=== PATIENT | female | born 1985 | race Caucasian/White ===

== ENCOUNTER 2022-04-05 12:46 | Outpatient (CLI) | payer OTHER, SELFPAY ==
--- NOTE | 2022-04-05 13:00 | CRLHL7_ITS ---
For Patients: As a result of the Cures Act, medical imaging exams and procedure reports are released immediately into your electronic medical record. You may view this report before your referring provider. If you have questions, please contact your health care provider. INDICATION: f/u previous YOSI COMPARISON: 03/07/2022 TECHNIQUE: Real-time quiñonez-scale imaging of the pelvis was performed. FINDINGS: Sonographic imaging demonstrates a single living intrauterine gestation. The embryo demonstrates a regular cardiac rate measuring 148 beats per minute. The embryo`s crown-rump length measurement of 7.3 cm corresponds to a gestational age of 13 weeks 3 days with a sonographic due date of 10/08/2022. The yolk sac is not visualized. There are no gross abnormalities noted within the embryo at this early state of development. The gestational sac has a normal appearance. Inferior perigestational hemorrhage is present measuring 13 x 10 millimeters. Fundal perigestational hemorrhage is also noted measuring 20 x 5 x 7 millimeters. The amount of fluid within the sac appears appropriate for gestational age. IMPRESSION: Single living intrauterine with sonographic gestational age 13 weeks 3 days and sonographic due date 10/08/2022. Slightly decreased size of the 2 subchorionic hemorrhages. Dictated by Jenaro Caicedo MD @ 04/05/2022 2:14:16 PM (Electronically Signed)
== END 2022-04-05 12:47 | disposition home or self-care (01) ==
LOC: US 12:47
PROVIDERS: PCP Nurse Practitioner Family; Visit Provider Registered Nurse
DX: O46.8X1 Other antepartum hemorrhage, first trimester (principal); Z3A.13 13 weeks gestation of pregnancy
CPT/HCPCS: 76816

== ENCOUNTER 2022-04-17 13:49 | Outpatient (CLI) | payer OTHER, SELFPAY | END 2022-04-17 13:50 | disposition home or self-care (01) | LOC: NFLDREF 13:50 | PROVIDERS: PCP Nurse Practitioner Family; Visit Provider Advanced Practice Midwife | DX: O09.522 Supervision of elderly multigravida, second trimester (principal); O26.892 Other specified pregnancy related conditions, second trimester; N39.0 Urinary tract infection, site not specified; Z3A.14 14 weeks gestation of pregnancy | CPT/HCPCS: 87086; 87186 ==

== ENCOUNTER 2022-05-03 13:49 | Outpatient (CLI) | payer OTHER, SELFPAY | END 2022-05-03 13:50 | disposition home or self-care (01) | LOC: NFLDREF 15:02 | PROVIDERS: PCP Nurse Practitioner Family; Visit Provider Advanced Practice Midwife | DX: Z34.92 Encounter for supervision of normal pregnancy, unspecified, second trimester (principal); Z3A.17 17 weeks gestation of pregnancy | CPT/HCPCS: 87086 ==

== ENCOUNTER 2022-06-06 12:30 | Outpatient (CLI) | payer OTHER, SELFPAY | END 2022-06-06 12:31 | disposition home or self-care (01) | LOC: US 12:31 | PROVIDERS: PCP Nurse Practitioner Family; Visit Provider Pediatrics Neonatal-Perinatal Medicine | DX: O09.522 Supervision of elderly multigravida, second trimester (principal); Z3A.21 21 weeks gestation of pregnancy | CPT/HCPCS: 76811 ==

== ENCOUNTER 2022-07-18 15:12 | Outpatient (CLI) | payer OTHER, SELFPAY ==
[2022-07-20 13:53] LABS: Rapid Plasma Reagin (RPR) Non Reactive (Non Reactive)
== END 2022-07-18 15:13 | disposition home or self-care (01) ==
PROVIDERS: PCP Nurse Practitioner Family; Visit Provider Obstetrics & Gynecology
DX: O09.522 Supervision of elderly multigravida, second trimester (principal); Z3A.27 27 weeks gestation of pregnancy
CPT/HCPCS: 86592

== ENCOUNTER 2022-07-25 15:22 | Outpatient (CLI) | payer OTHER, SELFPAY ==
[2022-07-25 08:33] LABS: Glucose Fasting Check 73 mg/dl (60-115)
[2022-07-25 11:58] LABS: Glucose 1 Hour Gest 135 mg/dl (70-180)
[2022-07-25 11:58] LABS: Glucose GTT-Gestational 3 Hr 79 mg/dl (70-140)
== END 2022-07-25 15:23 | disposition home or self-care (01) ==
PROVIDERS: PCP Nurse Practitioner Family; Visit Provider Obstetrics & Gynecology
DX: R73.09 Other abnormal glucose (principal)
CPT/HCPCS: 82951; 82952

== ENCOUNTER 2022-09-13 10:10 | Outpatient (CLI) | payer OTHER, SELFPAY ==
--- NOTE | 2022-09-13 10:15 | CRLHL7_ITS ---
For Patients: As a result of the Century Cures Act, medical imaging exams and procedure reports are released immediately into your electronic medical record. You may view this report before your referring provider. If you have questions, please contact your health care provider. INDICATION: Third trimester scan, evaluate growth. MEASURING LARGER THAN DATES COMPARISON: 04/05/2022 TECHNIQUE: Real time quiñonez scale imaging of the fetus was performed. FINDINGS: Sonographic imaging demonstrates a single living intrauterine gestation. Fetus demonstrates a regular cardiac rate of 132 beats per minute. Fetus has a vertex position. The placenta lies fundal posterior. Amniotic fluid volume appears normal and there is a single deepest vertical pocket: 6.7 cm. The estimated weight is 3339gm which lies at the 93rd %. BPD 84th percentile. HC 72nd percentile. AC greater than 97th percentile. FL 15th percentile. The HC/AC ratio measures 0.94 range (0.91-1.05). IMPRESSION: Sonographic gestational age 37 weeks 2 days and sonographic due date 10/02/2022. Sonographic age is 9 days ahead of the clinical age. Estimated weight 93rd percentile. Abdominal circumference greater than 97th percentile. Dictated by Jenaro Caicedo MD @ 09/13/2022 11:25:50 AM (Electronically Signed)
== END 2022-09-13 10:11 | disposition home or self-care (01) ==
PROVIDERS: PCP Nurse Practitioner Family; Visit Provider Obstetrics & Gynecology
DX: O36.63X0 Maternal care for excessive fetal growth, third trimester, not applicable or unspecified (principal); Z3A.37 37 weeks gestation of pregnancy
CPT/HCPCS: 76816

== ENCOUNTER 2022-09-13 11:32 | Outpatient (CLI) | payer OTHER, SELFPAY ==
[2022-09-14 13:56] LABS: Strep B DNA Probe POSITIVE (Negative); Strep B Pen/Amox Allergy Yes
== END 2022-09-13 11:33 | disposition home or self-care (01) ==
LOC: NFLDREF 11:51
PROVIDERS: PCP Nurse Practitioner Family; Visit Provider Obstetrics & Gynecology
DX: O36.63X0 Maternal care for excessive fetal growth, third trimester, not applicable or unspecified (principal); Z3A.37 37 weeks gestation of pregnancy
CPT/HCPCS: 87081; 87186; 87653

== ENCOUNTER 2022-09-27 13:30 | Outpatient (RCR) | payer OTHER, SELFPAY ==
--- NOTE | 2022-09-24 06:58 | URNOTE ---
Request received for Ferric Carboxymaltose ([id number]). Prior Authorization is not required per [facility] Ref#[id number].
[2022-09-27 13:30] VITALS: BP 105/68; PULSE 92; RESP 16; TEMP 36.6; O2SAT 99
[2022-09-27] MEDS: FERRIC CARBOXYMALTOSE 750 MG in 0.9 % SODIUM CHLORIDE 250 ml 250 ML 1060 MG IVPB (14:07)
[2022-09-27 14:26] VITALS: BP 100/64; PULSE 82; RESP 16; TEMP 36.8; O2SAT 95
[2022-09-27 14:55] VITALS: BP 110/67; PULSE 78; RESP 16; TEMP 36.2; O2SAT 98
== END 2023-03-26 23:59 | disposition home or self-care (01) ==
LOC: CCIC 13:30
PROVIDERS: PCP Nurse Practitioner Family; Referring Provider Nurse Practitioner Family; Visit Provider Obstetrics & Gynecology
DX: O99.019 Anemia complicating pregnancy, unspecified trimester (principal)
CPT/HCPCS: 96374; J1439; J7050

== ENCOUNTER 2022-09-27 16:15 | Inpatient (IN) | payer OTHER, SELFPAY ==
[2022-09-27] VITALS (39 sets, daily range): BP systolic 96–109; BP diastolic 54–69; PULSE 78–239; TEMP 36.8–36.9; O2SAT 81–100; BMI 27.8
[2022-09-27] MEDS: CALCIUM CARBONATE 500 MG CHEW PO (16:51)
[2022-09-27 16:59] LABS: SARS PCR* Negative SARS-CoV-2 (Negative)
[2022-09-27] MEDS: LACTATED RINGERS 1000 ML 1,000 ML 125 ML IV (17:00)
[2022-09-27] MEDS: CLINDAMYCIN 900 MG/50 ML-D5W IVPB (18:48)
--- NOTE | 2022-09-27 20:56 | P.LDBA_ITS ---
Subjective History of Present Illness Date Seen: 09/27/22 Narrative: Patient is being admitted to Labor and Delivery for IOL. She is a 37 year old at 38 0/7 weeks gestation. Her full history and physical was dictated by Dr. LAM on 09/20/22. Please see this for details. Patient presented today in the afternoon to clinic for routine care visit, she had just completed her first dose of IV iron infusion. Upon Doppler evaluation heart rate was found in the 105-110bpm. Recommendation was given to perform NST in the clinic and heart rate was found at the 100s for the first at least 5 minutes, recommendation was made to quickly transfer patient to labor and delivery for further evaluation. Pulse oximeter was placed on mom and bedside ultrasound confirmed heart rate persistently in the 100s. Patient was repositioned, IV line was quickly obtained and we did get some accelerations, OR team was called in due to concerns of persistent bradycardia. Within 10 minutes baseline was seen to improve closer to the 110s, accelerations present, moderate variability present. Due to these findings, term gestation recommendation was made for admission continued monitoring and IOL. Patient agreed with plan. Specific Issues/Plans Boyfriend: Everardo (this will be his 1st baby). Son: Rashaad. Baby: Boy Blood type:?O positive 1. Advanced maternal age * Ordered [id number] on 04/05/22: no increased risk for aneuploidy. Boy. * Level 2 ultrasound 06/06/2022: No anatomic abnormalities. 2. Discontinued Adderall with positive urine test 3. History of situational anxiety.? Took Xanax on rare occasions.? Has not taken it in over a year does not plan to take it during .? 4. 2018: Pap at [place] was LGSIL (no colposcopy). * Pap with HPV on 04/05/2022 at 13 weeks 0 days gestation. * 04/05/22: ASCUS cannot R/O High grade lesion. HPV 16 an 18 neg. 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 * Colposcopy:? Scheduled 06/01/2022: minimal acetowhite change: no biopsy. * Pap w/ HPV and colposcopy at 6 weeks . 5. UTI E. Coli Treated 04/17/2021 Cephalexin 500 mg BID x 7 days JESUS: UC 05/03/2022: No growth. 6. Anemia.? Hemoglobin 9.7 07/18/2022 * Iron supplement prescription and stool softener prescriptions sent to pharmacy(07/18/22). * Patient did not take the supplements. Takes gummy vitamins (no iron) * 09/13/22 36 wks: hgb 9.3 (now taking supplements) * Iron infusion 09/27/22 7. At 1st visit was smoking 5-10 cigarettes/day.? Quit smoking 02/2022 ? Covid: completed. ? Due for booster Flu: Declines TDAP: done OB - H&P: Exam Physical Exam: Vital signs: Temp Pulse BP Pulse Ox 98.4 F 83 109/69 97 09/27/22 19:27 09/27/22 19:27 09/27/22 19:27 09/27/22 19:05 Narrative: Cervix had been checked in clinic and was found 3cm/60%/vertex/-1 NST: 110bm/positive accelerations/negative decelerations/moderate variability/irregular uterine contractions OB - Problem Based A/P Additional Plan (1) : Status: Acute (2) Anemia affecting : Status: Acute Plan IOL: 1. GBS positive status. Penicillin allergy, sensitive to clindamycin will utilize this medication, will plan to offer AROM after at least 3-4 hours of antibiotic therapy. 2. Continuos monitoring. 3. Pain management as requested by patient. 4. Offered to start IV Oxytocin as well at some point prior to AROM. 5. Type and screen, low threshold for blood transfusions in the event of hemorrhage, plan to give TXA prior to expected delivery.
[2022-09-27 21:25] LABS: Basophils Percent Auto 0.1 % (0.0-3.0); Eosinophils Percent Auto 0.6 % (0.0-7.0); Hemoglobin* 10.5 gm/dL (12.0-16.0); Immature Granulocytes Pct Auto 1.1 %; Lymphocytes Percent Auto 18.6 % (20-44); Mean Corpuscular HGB Conc 33 gm/dL (32-36); Mean Corpuscular Hemoglobin 30 pg (26-34); Mean Corpuscular Volume 91 fL (80-100); Monocytes Percent Auto 4.9 % (0.0-11.0); Neutrophils Percent Auto 74.7 % (42.0-72.0); Platelet Count* 236 K/uL (140-440); RDW Coefficient of Variation % 14.5 % (11.5-15.5)
[2022-09-27 21:30] LABS: Slide Review Reflex No
--- NOTE | 2022-09-27 23:47 | PM.OBPNL ---
Subjective Time Seen by Provider: 23:47 Date Seen: 09/27/22 Narrative: Patient doing well is starting to feel contractions as more painful but still able to tolerate. NST baseline has remained in the 115-120s, category 1. Clindamycin was given and it has been more than 4 hours since first dose. Patient would like to be checked to see if we could rupture membranes. Objective Exam: Cervix:4cm/60%/vx/-2 AROM performed and after this; Cervix:5cm/60%/VX/-2 NST: 115bpm/positive accelerations/negative decelerations/moderate variability/ regular uterine contractions Vital Signs: Last Vital Signs Temp 98.4 F 09/27/22 19:27 Pulse 83 09/27/22 19:27 BP 109/69 09/27/22 19:27 Pulse Ox 97 09/27/22 19:05 Contractions Monitor mode: External Contraction pattern: Regular Contraction intensity: Moderate Assessment Assessment: early labor Station: -2 Amniotic Membrane Status: AROM Status: Category l Heart Rate Baseline: 115 Penitentiary Variability: Moderate (6-25) Monitor Accelerations: Present Monitor Decelerations: None Tracing Comments: Category 1 Plan Plan: Continue current management, recommend starting IV oxytocin at this moment to help with station. She would like to continue ambulation at this moment and try different options for pain management before proceeding to epidural. Will plan to recheck in 4 hours, sooner if there are any concerns.
[2022-09-28] VITALS (41 sets, daily range): BP systolic 87–117; BP diastolic 50–81; PULSE 78–131; RESP 16; TEMP 36.3–36.9; O2SAT 96–100
[2022-09-28] MEDS: OXYTOCIN 30 unit/500 ML in NS 30 UNIT/500 ML BAG IVPB (01:28)
[2022-09-28] MEDS: LACTATED RINGERS 1000 ML 1,000 ML 125 ML IV (02:32)
[2022-09-28] MEDS: CLINDAMYCIN 900 MG/50 ML-D5W IVPB (02:32)
[2022-09-28] MEDS: LIDOCAINE 2% (PF) 5 ML VIAL EPIDURAL (04:30)
[2022-09-28] MEDS: ROPIVACAINE 0.2 % PF 10 ML INJ 20 MG EPIDURAL (04:30)
[2022-09-28] MEDS: ROPIVACAINE 0.2% 100 ml 100 ML 12 MG EPIDURAL (04:31)
--- NOTE | 2022-09-28 04:39 | PM.ANBPRC ---
[facility] Medical History (Updated 08/01/22 @ 17:21 by Lanette Leung MD) AMA (advanced maternal age) multigravida 35+ Delivery normal Insomnia LGSIL on Pap smear of cervix (~2017) Pap smear of cervix with ASCUS, cannot exclude HGSIL (04/05/22) Surgical History (Updated 06/01/22 @ 20:02 by Carmen Ingram MD) Status post colposcopy (06/01/22) Social History Smoking Status: Former smoker Meds Home Medications and Allergies Home Medications Medication Instructions Recorded Confirmed Type docosahexaenoic acid 200 mg 200 mg PO DAILY 04/05/22 09/27/22 History capsule ( DHA) ferrous sulfate 325 mg (65 mg 325 mg PO QDAY 09/20/22 09/27/22 History iron) tablet (Feosol) Allergies Allergy/AdvReac Type Severity Reaction Status Date / Time Penicillins Allergy Unknown Hives Verified 09/27/22 15:06 Results Labs Labs: Laboratory Results - last 24 hr 09/27/22 09/27/22 09/27/22 16:00 16:08 16:08 WBC 14.80 H RBC 3.50 L Hgb 10.5 L Hct 32.0 L MCV 91 MCH 30 MCHC 33 RDW Coeff of [place] 14.5 Plt Count 236 Neut % (Auto) 74.7 H Lymph % (Auto) 18.6 L [place] % (Auto) 4.9 Eos % (Auto) 0.6 Baso % (Auto) 0.1 Neut # (Auto) 11.10 H Lymph # (Auto) 2.80 [place] # (Auto) 0.70 Eos # (Auto) 0.10 Baso # (Auto) 0.00 SARS-CoV-2 (PCR) Negative SARS-CoV-2 Blood Type O Positive Antibody Screen NEGATIVE Vital Signs Vital Signs: Last Vital Signs Temp 97.4 F L 09/28/22 03:10 Pulse 97 09/28/22 04:39 BP 109/65 09/28/22 04:39 Pulse Ox 97 09/28/22 04:38 Weight: 66.996 kg Height: 154.94 cm Anesthesia Procedures Epidural Insertion Patient Location: OB Start Time: 03:36 Stop Time: 04:39 Start Date: 09/28/22 Stop Date: 09/28/22 Reason for Block: procedure for pain Patient Position: sitting Performed By: Alex Louie Preanesthetic Checklist: IV checked, risks and benefits discussed, surgical consent, monitors and equipment checked, pre-op evaluation, timeout performed and anesthesia consent Prep: chlorhexidine gluconate Monitoring: blood pressure monitoring, continuous pulse oximetry and heart rate Approach: midline Vertebral Space: lumbar (1-5) Epidural Technique: STEVEN air Needle Type: Tuohy needle Injection Technique: continuous catheter Needle gauge: 17 Needle Length (cm): 10 cm Needle Insertion Depth (cm): 7 Catheter Gauge: 19 Catheter Type: multi-orifice Catheter at skin depth (cm): 13 Test Dose Result: negative and lidocaine 1.5% with epinephrine 1 to 200,000
[2022-09-28] MEDS: LACTATED RINGERS 1000 ML 1,000 ML 999 ML IV (04:41)
[2022-09-28] MEDS: TRANEXAMIC ACID 100 MG/ML INJ 1000 MG IV (06:27)
[2022-09-28] MEDS: LIDOCAINE 1% MDV 20 ML INJECTION (07:47)
--- NOTE | 2022-09-28 07:56 | PM.OBPRCVD ---
Procedure Delivery date: 09/28/22 Procedure Done: Global Events: Other (Sent from clinic for induction of labor due to heart rate baseline 110s) Intrapartal Events: None Induction method: per pitocin protocol Delivery augmentation: rupture of membranes Delivery monitor: external FHT and external uterine Route of delivery: Laceration description: Periurethral - 1st Degree (Left) Delivery repair: Chromic (2 interrupted sutures of 3-0 chromic) Estimated blood loss (mL): 150 Anesthesia type: Epidural Disposition: floor Complications: None. Narrative: The patient is a 37 year-old admitted on 09/27/2022 at 38 Weeks, 0 Days gestation for induction of labor secondary to low heart rate baseline noted in the clinic.? Cervical exam on admission was 3 cm/60 % effaced/-1 station with membranes intact in vertex presentation.? heart rate demonstrated baseline 115 bpm with good variability, + accelerations, - decelerations; a category 1 tracing.? Labor onset:? 2328 on 09/27/2022 AROM occurred at 2329 with clear fluid. ? Labor Analgesia:? Epidural ? Pitocin:? Yes ? Complete:? 0623 on 09/28/2022 ? Pushing:? 0628 ? At 0735 a viable male delivered in vertex OA presentation over intact perineum via spontaneous vaginal delivery.? Infant was placed on maternal abdomen.? Cord was clamped and cut after a 30-60 second delay.? Nose and mouth were bulb suctioned.? weight pending.? 9 at 1 minute and 9 at 5 minutes.? Shoulder dystocia: No.? Nuchal cord: Yes, x1. ? Placenta delivered spontaneously and complete at 0740 with a 3 vessel cord. ? Mother and infant were stable after delivery. ? Lacerations:? 1st degree left periurethral, repaired with 2 interrupted sutures of 3-0 chromic. ? Blood loss: 150 mL. Blood loss measurement type: QBL ? Sponge and needles counts are correct. Gender: Male presentation: vertex Placental Delivery Description: Spontaneous Cord Description: 3 Vessels and Nuchal Cord (x1)
[2022-09-28] MEDS: IBUPROFEN 600 MG TABLET PO ×3 (09:54→22:40)
[2022-09-28] MEDS: DOCUSATE SODIUM 100 MG CAPSULE PO (09:54)
[2022-09-28] MEDS: ACETAMINOPHEN 500 MG TABLET 1000 MG PO (12:29)
[2022-09-29 01:00] VITALS: BP 97/64; PULSE 75; RESP 16; O2SAT 97
[2022-09-29 04:00] VITALS: BP 109/68; PULSE 67; RESP 16; TEMP 36.6; O2SAT 97
[2022-09-29] MEDS: IBUPROFEN 600 MG TABLET PO ×2 (05:05→12:07)
[2022-09-29 09:15] VITALS: BP 102/66; PULSE 83; RESP 16; TEMP 36.6; O2SAT 97
--- NOTE | 2022-09-29 10:19 | PM.OBDSVD1 ---
DS: Providers Provider Date Seen: 09/29/22 Date of admission: 09/27/22 16:15 Primary care physician: Laura Hansen APRN, [facility] [employer] Admitting Clinician: Sherry Deal MD Attending Physician on discharge: Sherry Deal MD Date of Discharge: 09/29/22 DS: Diagnosis Discharge Diagnosis (1) Spontaneous vaginal delivery: Status: Acute Exam Narrative: Exam Narrative: VITAL SIGNS: As noted above. GENERAL APPEARANCE: Alert, cooperative female in no acute distress. MOOD & AFFECT: Normal. ABDOMEN: Soft, non-distended and nontender. Well contracted uterus. : Normal lochia. EXTREMITIES: Nonedematous. Well perfused. Nontender. Const: Vital Signs, click to edit/add: Vital Signs - 24 hr 09/28/22 12:22 09/28/22 16:00 09/28/22 19:15 Temperature 98.5 F 98.1 F 97.8 F Pulse Rate [Pulse Oximeter] 78 82 89 Respiratory Rate 16 16 16 Blood Pressure [Ri ght Arm] 93/55 L 95/58 L 108/69 Pulse Oximetry 97 96 98 Oxygen Delivery Me thod Room Air Room Air Room Air 09/29/22 01:00 09/29/22 04:00 09/29/22 09:15 Temperature 97.9 F 97.9 F Pulse Rate [Pulse Oximeter] 75 67 83 Respiratory Rate 16 16 16 Blood Pressure [Ri ght Arm] 97/64 109/68 102/66 Pulse Oximetry 97 97 97 Oxygen Delivery Me thod Room Air Room Air Room Air OB - DS: Summary Hospital Course Hospital Course: The patient is a 37 year old G 2 P 20 0 2 at 38 2/7 weeks gestation that was admitted to the Center on 09/27/22 for induction of labor after concerns for nonreassuring status. She had an uncomplicated vaginal delivery. She delivered a viable male . She is breast feeding. the patient has done well. Hemoglobin 10.5, patient denies any headaches, visual changes, heart palpitations or lightheadedness or dizziness with ambulation. Peripartum Data delivery method: Vaginal Laceration description: Periurethral - 1st Degree Episiotomy description: None complications: none Gender: Male Status at Discharge Functional status at discharge: independent ambulation Overall status at discharge: patient is progressing back to baseline Time Spent with Patient Time attestation: Total time spent providing and/or coordinating discharge services: Time spent: Less than 30 minutes Discharge Plan Discharge Disposition: Home, Self-Care Date of Admission: 09/27/22 16:15 Attending Provider on Discharge: Sherry Deal Primary Care Provider: Laura Hansen Condition: Stable Anticipated Discharge Date/Time: 09/29/22 10:21 Discharge Medications: New docusate sodium 100 mg Capsule 100 mg PO DAILY Qty: 30 0RF ibuprofen 600 mg Tablet 600 mg PO Q6H PRNQty: 30 0RF Continued DHA 200 mg capsule 200 mg PO DAILY Discontinued ferrous sulfate [Feosol] 325 mg (65 mg iron) tablet 325 mg PO QDAY Discharge Orders: Discharge Order (Routine); Ordered 09/29/22 Ordered By: Sherry Deal Patient Education: OB Vaginal/Breast Feeding Activity Level: Activity as Tolerated Activity Detail: Nothing vaginally for 6 weeks Discharge Diet: Regular Follow Up Appointments: Laura Hansen APRN, [facility] [employer] [Primary Care Provider] - Sherry Deal MD [Staff Physician] - Forms: MyHealth Info Instructions Discharge Comments: Follow-up in clinic in 2 weeks to follow-up on mood and , follow-up in clinic at 6 weeks for a regular visit.
[2022-09-29 10:34] LABS: Hemoglobin* 9.3 gm/dL (12.0-16.0)
[2022-09-29] MEDS: DOCUSATE SODIUM 100 MG CAPSULE PO (12:08)
== END 2022-09-29 14:51 | disposition home or self-care (01) | DRG 807 ==
LOC: OB OUT 16:16 → OB 16:16
PROVIDERS: Obstetrics & Gynecology; Admitting Provider Obstetrics & Gynecology; PCP Nurse Practitioner Family; Visit Provider Obstetrics & Gynecology
DX: O76 Abnormality in fetal heart rate and rhythm complicating labor and delivery (principal); Z37.0 Single live birth; O71.82 Other specified trauma to perineum and vulva; O99.02 Anemia complicating childbirth; D64.9 Anemia, unspecified; O99.824 Streptococcus B carrier state complicating childbirth; Z3A.38 38 weeks gestation of pregnancy
CPT/HCPCS: 01967; 36415; 85018; 85025; 86850; 86900; 86901; 87635; A9270; J2795; J7120; S0077

== ENCOUNTER 2022-10-05 12:53 | Outpatient (CLI) | payer OTHER, SELFPAY ==
--- NOTE | 2022-10-05 16:50 | P.LACCB_ITS ---
Consult Note - Mom Date of Visit Date of visit: 10/05/22 emergency management consultant: Leann Ritter Visit Code: Visit Patient's Information Phone number: [phone] : 2 Para: 2 Allergies Penicillins Allergy (Unknown, Verified 10/16/22 12:32) Hives Mother's Medical History: Medical History (Updated 09/29/22 @ 10:19 by Sherry Deal MD) AMA (advanced maternal age) multigravida 35+ Delivery Information Delivery type: Vaginal Weeks Gestation: 38.1 Gestational Age: LGA Weight: 3.78 kg Discharge Weight: 3.632 kg Baby's Information Medications: pnv, colace, ibuprofen Baby's Age at Visit: 7 days Baby's Provider or Clinic: Dr. Caceres Jaundice: Yes (mild, facial) Reason for Consult Reason for Consult: difficulty latching Past Experience Past Experience: Yes (nursed her first child) Current Frequency of Day Feedings: every 2 - 3.5 hours around the clock Both Breasts: Yes (mom offers) Suck: fairly strong but he's sleepy Latch: wide Length of Time: will someimes nurse over one hour Pumping Pumping: Yes (has been pumping the past few days d/t difficulty latching) Quantity Pumped: about 2 oz total each time Supplementing EMB Supplement: Yes (POC have given about one bottle EBM daily) Formula Supplement: No Baby Elimination Number of Wet Diapers a Day: at least every feeding Number of BM a Day: about every other feeding; yellow and seedy Breast/Nipple Condition Breast Information: WNL Engorgement: No Maternal Nipple Condition - Left: Common Nipple Maternal Nipple Condition - Right: Common Nipple Sore Nipples: Yes Onsite Pre-Feed weight: 3.408 kg Post-Feed weight: 3.458 kg Milk Transferred (mL): 50 Pre-Nursing Left Nipple: Within Normal Limits Pre-Nursing Right Nipple: Within Normal Limits Post-Nursing Left Nipple: Within Normal Limits Post-Nursing Right Nipple: Within Normal Limits Assessments/Interventions Assessments/Interventions: Met with mom and this now 7 day old ex- term LGA baby for consult.? Mom reports she's had difficulty latching him almost since and that he will latch but it can take up to 20 minutes.? Once he does she states he nurses well, she hears swallowing and her breasts feel softer when he's finished.? She also reports even with the signs of positive milk transfer he was still loosing weight at his NB visit on 10/02/22.? Since his NB visit mom has pumped once daily getting about 2 oz total.? POC have supplemented baby no more than once daily with her EBM. Breasts WNL- symmetrical with rounded lower quadrants, intramammary distance is < 1.5 inches.? Nipples are everted and don't flatten or retract on compression.? No damage was visible but mom states they are a little sore.? Reports her milk came in on 09/30. Baby has lost 51 grams since his visit on 10/02 and is 10% below BW (down from 8% on 10/02/22). POC deny a caput or cephalohematoma at delivery and state he has equal ROM when turning his head or moving his extremities.? His palate is WNL and he has a strong suck on a finger.? His upper frenulum is also WNL, his lower frenulum looks like it may be posterior, but the tongue extends past the gum line and has good lateral movement. Mom brought baby to the right breast in the cradle hold and he latched almost immediately.? He had a deep, asymmetrical latch and mom was comfortable.? He nursed for about 20 minutes, needing some stimulation to stay awake.? Mom then switched him to her right side and again he latched almost immediately; on this side mom supported her breast in the C hold which seemed to help him.? We discussed what might be different in the office from how she's nursing at home is: he's undressed, she's sitting up with good posture, and she's supporting her breast.? Baby nursed about 10 minutes on the right and when he was weighed had transferred 50 ml.? Plan: 1. Continue to nurse baby every 2 - 3 hours, offering both sides at each feeding and not letting him go past 3 hours for now.? Suggested she nurse him at home like she did here as the better posture and breast support probably helped him. 2. Suggested supplementing with 1 - 2 oz if a nursing session does not go well. 3. Suggested she pump to comfort after nursing prn, and pump to empty if he doesn't nurse well.? What she pumps can be used for supplementation. 4. Will f/u for a weight check in on 10/08 and for a circumcision on 10/10. Meds Home Medications and Allergies Home Medications Medication Instructions Recorded Confirmed Type docosahexaenoic acid 200 mg 200 mg PO DAILY 04/05/22 10/16/22 History capsule ( DHA) Allergies Allergy/AdvReac Type Severity Reaction Status Date / Time Penicillins Allergy Unknown Hives Verified 10/16/22 12:32
== END 2022-10-05 12:54 | disposition home or self-care (01) ==
PROVIDERS: PCP Nurse Practitioner Family; Visit Provider Obstetrics & Gynecology
DX: Z39.1 Encounter for care and examination of lactating mother (principal)
CPT/HCPCS: 99211

== ENCOUNTER 2023-10-03 15:02 | Outpatient (CLI) | payer OTHER, SELFPAY ==
--- NOTE | 2023-10-03 15:00 | CRLHL7_ITS ---
For Patients: As a result of the Century Cures Act, medical imaging exams and procedure reports are released immediately into your electronic medical record. You may view this report before your referring provider. If you have questions, please contact your health care provider. INDICATION: Vaginal bleeding in the setting of . According to the ultrasound worksheet, serum beta HCG is 17. TECHNIQUE: Endovaginal pelvic ultrasound with color Doppler. COMPARISON: No recent prior comparison exam. FINDINGS: The uterus measures 5.0 x 2.9 x 8.2 cm. Thin uniform endometrial stripe measuring 2 mm. No intrauterine gestational sac. Right and left ovaries measure 2.0 x 1.4 x 2.3 cm and 1.5 x 1.9 x 2.9 cm, respectively. The ovaries are normal in appearance. No adnexal mass. No pelvic ascites. IMPRESSION: of unknown location. No intrauterine or findings to indicate an ectopic identified. Follow-up ultrasound and beta HCG are recommended. Otherwise unremarkable study. Dictated by Germain Mariano MD @ 10/03/2023 4:39:53 PM (Electronically Signed)
== END 2023-10-03 15:03 | disposition home or self-care (01) ==
LOC: US 15:03
PROVIDERS: PCP Nurse Practitioner Family; Visit Provider Registered Nurse
DX: O46.90 Antepartum hemorrhage, unspecified, unspecified trimester (principal)
CPT/HCPCS: 76817; 82728; 83540; 83550; 84443; 84702; 86850; 86900; 86901; 87491; 87591

== ENCOUNTER 2023-10-05 12:00 | Outpatient (CLI) | payer OTHER, SELFPAY ==
--- OUTSIDE RECORDS SUMMARY | 2023-10-10 09:56 | XMS_ITS | Encounter Summary ---
Author Name Unknown Organization [facility] er Address [address] [place] [address] Care Team Providers Care Stonemason Name Role Phone Marisel Albright APRN, PRE SALES TECHNICAL CONSULTANT Primary Care Provider [phone]- [phone] Reason for Visit * Reason Comments Med Refill Encounter Details Date Type Department Care Team (Late st Contact Info) Description 03/01/2023 1:40 PM CDT Office Visit [place] [address] [facility] [address] [place] [address] Maylin Phipps, CLAIM CLERK [address] [place] [address] Encounter to establish care with new doctor (Primary Dx); Attention deficit disorder (ADD) without hyperactivity Social History Tobacco Use Types Packs/Day Years Used Date Smoking Tobacco: Every Day Cigarettes 0.5 Smokeless Tobacco: Never Alcohol Use Standard Drinks/Week Comments Yes 1 (1 standard drink = 0.6 oz pur e alcohol) AUDIT-C Answer Date Recorded Frequency of Alcohol Consumption Monthly or less 05/14/2019 Average Number of Drinks 1 or 2 019 Frequency of Binge Drinking Not on file 04/30 PHQ-2 Answer Date Recorded PHQ-9 Total Score 2 02/28/2023 Education Answer Date Recorded What is the highest level of school you have completed or the highest degree you have received? High school graduate 05/12/2019 Sex and Gender Information Value Date Recorded Sex Assigned at Not on file Gender Identity Not on file Sexual Orientation Not on file documented as of this encounter Last Filed Vital Signs Vital Sign Reading Time Taken Comments Blood Pressure 106/68 03/01/2023 1:41 PM CDT Pulse 68 03/01/2023 1:41 PM CDT Temperature 36.1 ??C (97 ??F) 03/01/2023 1:41 PM CDT Respiratory Rate 18 03/01/2023 1:41 PM CDT Oxygen Saturation 96% 03/01/2023 1:41 PM CDT Inhaled Oxygen Concentration - - Weight 57.2 kg (126 lb) 03/01/2023 1:41 PM CDT Height 154.9 cm (5' 1) 03/01/2023 1:41 PM CDT Body Mass Index 23.81 03/01/2023 1:41 PM CDT documented in this encounter Patient Instructions * Patient Instructions* Maylin Phipps APRN - 03/01/2023 1:40 PM CDT Recheck ADHD medications in 3 months documented in this encounter Progress Notes * Maylin Phipps APRN - 03/01/2023 1:40 PM CDT Subjective Patient ID: Kiya Pulido is a 37 y.o. female. Chief Complaint Patient presents with Med Refill Patient presents for her annual wellness visit. Patient Had a baby about 5 months ago and would like to get back on ADHD medications. She recently went back to work and has noticed decreased concentration and unable to complete tasks in a timely manner. Med Refill A provider reviewed the following portions of the patient's chart in this encounter and updated as appropriate: Tobacco Allergies Meds Problems Med Hx Surg Hx Fam Hx Review of Systems Psychiatric/Behavioral: Positive for decreased concentration. All other systems reviewed and are negative. Objective Physical Exam Constitutional: Appearance: Normal appearance. She is well-developed and well-groomed. HENT: Head: Normocephalic. Right Ear: Hearing, tympanic membrane, ear canal and external ear normal. Left Ear: Hearing, tympanic membrane, ear canal and external ear normal. Nose: Nose normal. Mouth/Throat: Lips: [place]. Eyes: General: Lids are normal. Comments: Wears glasses when working on the computer for work Cardiovascular: Rate and Rhythm: Normal rate and regular rhythm. Pulses: Normal pulses. Heart sounds: Normal heart sounds. Pulmonary: Effort: Pulmonary effort is normal. Breath sounds: Normal breath sounds and air entry. Musculoskeletal: Cervical back: Full passive range of motion without pain. Neurological: General: No focal deficit present. Mental Status: She is alert. Psychiatric: Attention and Perception: She is inattentive. Mood and Affect: Mood and affect normal. Speech: Speech normal. Behavior: Behavior normal. Behavior is cooperative. Thought Content: Thought content normal. Cognition and Memory: Memory normal. Cognition is impaired. Judgment: Judgment normal. Comments: Increase difficulty with concentration and getting task done on time. Was previously on Adderall but became and went off of it. Kiya recently went back to work January 14 this is when she notice the difficulty with concentration and unable to complete task. Assessment/Plan Problem List Items Addressed This Visit Mental Health Attention deficit disorder (ADD) without hyperactivity Restart Adderall 20 mg 2 times a day Restart Adderall 10 mg daily Follow up in 3 months Relevant Medications amphetamine-dextroamphetamine (ADDERALL) 20 MG tablet amphetamine-dextroamphetamine (ADDERALL) 10 MG tablet Health Encounters Encounter to establish care with new doctor - Primary Pap is due in May 2023: Will continue to have [facility]. Does not want covid booster at this time Baseline blood work done today to establish care Relevant Orders CBC Branch Off w/Diff Comprehensive metabolic panel TSH Lipid panel documented in this encounter Miscellaneous Notes * Assessment & Plan Note - Maylin Phipps APRN - 03/01/2023 2:24 PM CDT Associated Problem(s): Attention deficit disorder (ADD) without hyperactivity Restart Adderall 20 mg 2 times a day Restart Adderall 10 mg daily Follow up in 3 months * Assessment & Plan Note - Maylin Phipps APRN - 03/01/2023 2:22 PM CDT Associated Problem(s): Encounter to establish care with new doctor Pap is due in May 2023: [facility]. Does not want covid booster at this time Baseline blood work done today to establish care * Assessment & Plan Note - Maylin hPipps APRN - 03/01/2023 2:20 PM CDT Associated Problem(s): Annual physical exam (Resolved 03/01/2023) Pap is due in May 2023: Will continue to have Pap's done at the [facility] [place]. Does not want covid booster at this time Baseline blood work done today to establish care documented in this encounter Plan of Treatment Not on file documented as of this encounter Results * Lipid panel (03/01/2023 2:13 PM CDT) Cholesterol 139 0 - 199 mg/dL 03/01/2023 5:[address] [facility] Comment: Recommended by National Cholesterol Education Program (ATP III) -------- Cholesterol Ranges -------- <200 ?Desirable 200-239 ? Borderline high >=240 ? High Triglycerides 99 0 - 149 mg/dL 03/01/2023 5:[address] [facility] Comment: -------- TRIG Ranges -------- <150 ?Normal 150-199 ? Borderline high 200-499 ? High >=500 ? Very high HDL 81 40 - 250 mg/dL 03/01/2023 5:[address] [facility] Comment: -------- HDL Ranges -------- <40 ?Low 40-59 ?Normal >=60 ? Optimal LDL Calculated 38 0 - 99 mg/dL 03/01/2023 5:[address] [facility] Comment: -------- LDL Ranges -------- <100 ? Optimal 100-129 ?Near optimal/above optimal 130-159 ?Borderline high 160-189 ?High >=190 ?Very high Fasting? Unknown 03/01/2023 2:[address] [facility] Blood (Blood, Venous) 03/01/2023 2:13 PM CDT 03/01/2023 4:34 PM CDT Maylin Phipps APRN LAB BLOOD TELMAE KAYLAN [facility] [address] [place] [address] * TSH (03/01/2023 2:13 PM CDT) [facility] TSH, Sensitive 0.87 0.46 - 4.68 mIU/L 03/01/2023 5:[address] [facility] Comment: The results from this or any other diagnostic test should be used and interpreted only in the context of the overall clinical picture. Biotin levels in serum remain elevated for up to 24 hours after oral or intravenous biotin administration and may interfere with this assay to produce unreliable results. Heterophilic antibodies in serum or plasma samples may cause interference in immunoassays. ??Exposure to animal antigens, either in the environment or as part of treatment or imaging procedures, may have circulating anti-animal antibodies present. These antibodies may interfere with the assay reagents to produce unreliable results. ??Results which are inconsistent with clinical observations indicate the need for additional testing. Blood (Blood, Venous) 03/01/2023 2:13 PM CDT 03/01/2023 4:34 PM CDT Maylin Phipps APRN LAB BLOOD MING KIMBROUGH [facility] [address] [place] [phone] * (ABNORMAL) Comprehensive metabolic panel (03/01/2023 2:13 PM CDT) Pathologist [facility] Total Protein 7.2 6.3 - 8.2 g/dL 03/01/2023 5:[address] [facility] Albumin, Serum 4.4 3.5 - 5.0 g/dL 03/01/2023 5:[address] [facility] Total Bilirubin <0.7 0.1 - 1.0 mg/dL 03/01/2023 5:[address] [facility] AST 24 8 - 43 U/L 03/01/2023 5:[address] [facility] Alkaline Phosphatase 93 38 - 128 U/L 03/01/2023 5:[address] [facility] ALT (SGPT) 23 0 - 34 U/L 03/01/2023 5:[address] [facility] Sodium 139 135 - 145 mEq/L 03/01/2023 5:[address] [facility] Potassium 4.4 3.5 - 5.1 mEq/L 03/01/2023 5:[address] [facility] Chloride 107 98 - 107 mEq/L 03/01/2023 5:[address] [facility] CO2 31(H) 22 - 29 mmol/L 03/01/2023 5:[address] [facility] BUN 16 5 - 25 mg/dL 03/01/2023 5:[address] [facility] Creatinine 0.67 0.40 - 1.20 mg/dL 03/01/2023 5:[address] [facility] Glucose 98 70 - 100 mg/dL 03/01/2023 5:[address] [facility] Calcium, Total,S 9.1 8.4 - 10.2 mg/dL 03/01/2023 5:[address] [facility] Blood (Blood, Venous) 03/01/2023 2:13 PM CDT 03/01/2023 4:34 PM CDT Maylin Phipps APRN LAB BLOOD MING K[facility] Organization Address City/State/ZIP Co de Phone Number [facility] [address] [place] [address] * (ABNORMAL) CBC Branch Off w/Diff (03/01/2023 2:13 PM CDT) WBC 9.4 3.5 - 10.5 K/uL 03/01/2023 2:25 PM CDT [facility] RBC 3.81(L) 3.90 - 5.00 M/uL 03/01/2023 2:25 PM CDT [facility] Hemoglobin 11.1(L) 12.0 - 15.5 g/dL 03/01/2023 2:25 PM CDT [facility] Hematocrit 33.7(L) 35.0 - 44.0 % 03/01/2023 2:25 PM CDT [facility] Platelets 340 150 - 450 K/uL 03/01/2023 2:25 PM CDT [facility] MCV 88.5 81.6 - 98.3 fL 03/01/2023 2:25 PM CDT [facility] MCH 29.1 26.0 - 32.0 pg 03/01/2023 2:25 PM CDT [facility] MCHC 32.9 32.0 - 36.0 g/dL 03/01/2023 2:25 PM CDT [facility] RDW 12.3 11.9 - 15.5 % 03/01/2023 2:25 PM CDT [facility] Lymphocytes % 33.7 % 03/01/2023 2:25 PM CDT [facility] Mid-size Cells 5.1 % 03/01/2023 2:25 PM CDT [facility] Granulocytes/Grace trophils 61.2 % 03/01/2023 2:25 PM CDT [facility] Lymphocytes Absolute 3.2(H) 0.9 - 2.9 K/uL 03/01/2023 2:25 PM CDT [facility] MIDS Absolute 0.5 0.4 - 1.5 K/uL 03/01/2023 2:25 PM CDT [facility] Granulocytes/Grace trophils Absolute 5.7 1.7 - 7.0 K/uL 03/01/2023 2:25 PM CDT [facility] Blood (Blood, Venous) 03/01/2023 2:13 PM CDT 03/01/2023 2:13 PM CDT Maylin Phipps APRN LAB BLOOD ORDE KAYLAN [facility] Organization Address City/State/ZIP Co de Phone Number [facility] [address] [place] [address] documented in this encounter Visit Diagnoses Diagnosis Encounter to establish care with new doctor- Primary Attention deficit disorder (ADD) without hyperactivity documented in this encounter Care Teams Stonemason Relationship Specialty Start Date End Date Marisel Albright APRN, CNP [address], [place] [address] PCP - General Family Medicine 04/13/21 04/02/23 documented as of this encounter
--- OUTSIDE RECORDS SUMMARY | 2023-10-10 09:56 | XMS_ITS | Encounter Summary ---
Author Name Unknown Organization [facility] er Address [address] [place] [address] Care Team Providers Care Him Coder Name Role Phone Maylin Phipps SUPERVISORY GEOGRAPHER Primary Care Provider Reason for Visit * Reason Comments Follow-up Encounter Details Date Type Department Care Team (Late st Contact Info) Description 06/11/2023 10:00 AM CDT Office Visit [place] [address] [facility] [address] [place] [address] Maylin Phipps, SUPERVISORY GEOGRAPHER [address] [place] [phone] Attention deficit disorder (ADD) without hyperactivity (Primary Dx) Social History Tobacco Use Types Packs/Day Years Used Date Smoking Tobacco: Former Cigarettes 0.5 Q uit: 01/2022 Smokeless Tobacco: Never Tobacco Cessation:Counseling Given: Not Answered Alcohol Use Standard Drinks/Week Comments Yes 1 (1 standard drink = 0.6 oz pur e alcohol) AUDIT-C Answer Date Recorded Frequency of Alcohol Consumption Monthly or less 05/14/2019 Average Number of Drinks 1 or 2 019 Frequency of Binge Drinking Not on file 04/30 PHQ-2 Answer Date Recorded PHQ-9 Total Score 2 06/11/2023 Education Answer Date Recorded What is the [...] Sign Reading Time Taken Comments Blood Pressure 110/73 06/11/2023 10:03 AM CDT Pulse 81 06/11/2023 10:03 AM CDT Temperature 36.3 ??C (97.4 ??F) 06/11/2023 1 0:03 AM CDT Respiratory Rate 16 06/11/2023 10:0 3 AM CDT Oxygen Saturation 99% 06/11/2023 10: 03 AM CDT Inhaled Oxygen Concentration - - Weight 49.8 kg (109 lb 11.2 oz) 023 10:03 AM CDT Height - - Body Mass Index 20.73 03/01/2023 1:41 PM CDT documented in this encounter Progress Notes * Maylin Phipps, SUPERVISORY GEOGRAPHER - 06/11/2023 10:00 AM CDT Subjective Patient ID: Kiya Pulido is a 38 y.o. female. Kiya presents today for her Adderall refill. Kiya feels her concentration is great on this medication and is helping her with work and her daily life. A provider reviewed the following portions of the patient's chart in this encounter and updated as appropriate: Tobacco Allergies Meds Problems Med Hx Surg Hx Fam Hx Review of Systems All other systems reviewed and are negative. Objective Physical Exam Constitutional: Appearance: Normal appearance. She is well-developed and well-groomed. HENT: Head: Normocephalic. Right Ear: Hearing normal. Left Ear: Hearing normal. Nose: Nose normal. Mouth/Throat: Lips: [place]. Cardiovascular: Rate and Rhythm: Normal rate and regular rhythm. Pulses: Normal pulses. Heart sounds: Normal heart sounds. Pulmonary: Effort: Pulmonary effort is normal. Breath sounds: Normal breath sounds and air entry. Neurological: General: No focal deficit present. Mental Status: She is alert and oriented to person, place, and time. Psychiatric: Attention and Perception: Attention and perception normal. Mood and Affect: Mood and affect normal. Speech: Speech normal. Behavior: Behavior normal. Behavior is cooperative. Thought Content: Thought content normal. Cognition and Memory: Cognition and memory normal. Judgment: Judgment normal. Assessment/Plan Problem List Items Addressed This Visit Mental Health Attention deficit disorder (ADD) without hyperactivity - Primary Relevant Medications amphetamine-dextroamphetamine (ADDERALL) 10 MG tablet (Start on 07/08/2023) amphetamine-dextroamphetamine (Adderall) 20 MG tablet (Start on 07/08/2023) amphetamine-dextroamphetamine (Adderall) 20 MG tablet amphetamine-dextroamphetamine (Adderall) 10 MG tablet amphetamine-dextroamphetamine (Adderall) 20 MG tablet (Start on 08/05/2023) amphetamine-dextroamphetamine (Adderall) 10 MG tablet (Start on 08/05/2023) documented in this encounter Plan of Treatment Not on file documented as of this encounter Visit Diagnoses Diagnosis Attention deficit disorder (ADD) without hyperactivity- Primary documented in this encounter Care Teams Him Coder Relationship Specialty Start Date End Date Maylin Phipps APRN [address] [place] [id number] PCP - General Family Medicine 04/03/23 documented as of this encounter
--- OUTSIDE RECORDS SUMMARY | 2023-10-10 09:56 | XMS_ITS | Clinical Summary ---
Author Name Unknown Organization [facility] er Address [address] [place] [address] Care Team Providers Care Purse Seiner Name Role Phone Maylin Phipps APRN Primary Care Provider Allergies Active Allergy Reactions Criticality Noted Date Comments Levofloxacin Nausea And Vomiting, Other (see comments) INSOMNIA Penicillins Hives Medications Medication Sig Dispensed Refills Start Date End Date Status Multiple Vitamins-Minerals (MULTIVITAMIN ADULT PO) 0 Active cetirizine (ZyrTEC) 10 MG tablet Take 1 tablet (10 mg total) by mouth 1 (one) time each day 0 Active amphetamine-dextroam phetamine (Adderall) 20 MG tabletIndications:At tention deficit disorder (ADD) without hyperactivity Take 1 tablet (20 mg total) by mouth 2 (two) times a day 60 tablet 0 10/15/2023 11/14/2023 Active amphetamine-dextroam phetamine (Adderall) 10 MG tabletIndications:At tention deficit disorder (ADD) without hyperactivity Take 1 tablet (10 mg total) by mouth 1 (one) time each day At 4 pm 30 tablet 0 10/04/2023 Active amphetamine-dextroam phetamine (Adderall) 20 MG tabletIndications:At tention deficit disorder (ADD) without hyperactivity Take 1 tablet (20 mg total) by mouth 2 (two) times a day 60 tablet 0 10/04/2023 11/03/2023 Active amphetamine-dextroam phetamine (ADDERALL) 10 MG tabletIndications:At tention deficit disorder (ADD) without hyperactivity Take 1 tablet (10 mg total) by mouth 1 (one) time each day At 4pm 30 tablet 0 07/08/2023 10/04/2023 Discontinued (Duplicate Order) amphetamine-dextroam phetamine (Adderall) 20 MG tabletIndications:At tention deficit disorder (ADD) without hyperactivity Take 1 tablet (20 mg total) by mouth 2 (two) times a day 60 tablet 0 07/08/2023 10/02/2023 Discontinued (Reorder) amphetamine-dextroam phetamine (Adderall) 20 MG tabletIndications:At tention deficit disorder (ADD) without hyperactivity Take 1 tablet (20 mg total) by mouth 2 (two) times a day 60 tablet 0 06/11/2023 10/04/2023 Discontinued (Reorder) amphetamine-dextroam phetamine (Adderall) 10 MG tabletIndications:At tention deficit disorder (ADD) without hyperactivity Take 1 tablet (10 mg total) by mouth 1 (one) time each day At 4 pm 30 tablet 0 06/11/2023 10/04/2023 Discontinued (Duplicate Order) amphetamine-dextroam phetamine (Adderall) 20 MG tabletIndications:At tention deficit disorder (ADD) without hyperactivity Take 1 tablet (20 mg total) by mouth 2 (two) times a day 60 tablet 0 08/05/2023 10/04/2023 Discontinued (Duplicate Order) amphetamine-dextroam phetamine (Adderall) 10 MG tabletIndications:At tention deficit disorder (ADD) without hyperactivity Take 1 tablet (10 mg total) by mouth 1 (one) time each day At 4 pm 30 tablet 0 08/05/2023 10/04/2023 Discontinued (Reorder) amphetamine-dextroam phetamine (Adderall) 10 MG tabletIndications:At tention deficit disorder (ADD) without hyperactivity Take 1 tablet (10 mg total) by mouth 1 (one) time each day At 4 pm 30 tablet 0 10/15/2023 10/04/2023 Discontinued (Duplicate Order) Active Problems Problem Noted Date Diagnosed Date Attention deficit disorder (ADD) without hyperac tivity 03/01/2023 Last Assessment & Plan: Restart Adderall 20 mg 2 times a day Restart Adderall 10 mg daily Follow up in 3 months Encounter to establish care with new doctor 10/2022 Last Assessment & Plan: Pap is due in May 2023: Will continue to [facility]. Does not want covid booster at this time Baseline blood work done today to establish care Anxiety state 04/13/2021 Depressive disorder 12/12/2006 Overview: Depression* Resolved Problems Problem Noted Date Diagnosed Date Resolved Date Annual physical exam 03/01/2023 023 Last Assessment & Plan: Pap is due in May 2023: Will continue to have Pap[facility] done at [facility]. Does not want covid booster at this time Baseline blood work done today to establish care Encounters Date Type Department Care Team Description 10/04/2023 Telephone [place] [address] [place] [address] Maylin Phipps APRN Adderall script pick-up 10/04/2023 Orders Only [place] [address] [place] [address] Maylin Phipps APRN Attention deficit disorder (ADD) without hyperactivity 10/02/2023 Orders Only [place] [address] [place] [address] Maylin Phipps, POLICE SERVICE TECHNICIAN Attention deficit disorder (ADD) without hyperactivity (Primary Dx) from Last 3 Months Immunizations Name Administration Dates Next Due COVID-19, mRNA, LNP-S, PF, 3 0mcg/0.3mL dose Pfizer 11/13/2021,11/13/2021,10/23/2021 MMR 01/19/1999 TD Preservative Free 06/30/1999 Td 06/30/1999,01/19/1999 Tdap 08/01/2022,05/06/2014 Family History Medical History Relation Comments Lung cancer Father Seizures Mother Melanoma Other Diabetes type II Paternal Grandfather Relation Status Comments Brother Alive Father Mother Alive Other Paternal Grandfather Son 1 Alive Son 2 Alive Social History Tobacco Use Types Packs/Day Years [...] on file Sexual Orientation Not on file Last Filed Vital Signs Vital Sign Reading [...] 11.2 oz) 023 10:03 AM CDT Height 154.9 cm (5' 1) 03/01/2023 1:41 PM CDT Body Mass Index 20.73 03/01/2023 1:41 PM CDT Plan of Treatment Health Maintenance Due Date Last Done Comments COVID-19 Vaccine ( season) 2023 11/13/2021, 11/13/2021, 10/23/2021 Influenza Vaccine (#1) 2023 Pap Smear 06/06/2023 06/06/2018 DTaP,Tdap,and Td Vaccines (5 - Td or Tdap) 08/01/2032 08/01/2022, 05/06/2014, 06/30/1999, Additional history exists HPV Vaccines Aged Out No longer eligi ble based on patient's age to complete this topic Pneumococcal Vaccine: Pediatrics (0 to 5 Years) and At-Risk Patients (6 to 64 Years) Aged Out No longer eligible based on patient's age to complete this topic Care Teams Purse Seiner Relationship Specialty Start Date End Date Maylin Phipps, POLICE SERVICE TECHNICIAN [address] [place] [id number] PCP - General Family Medicine 04/03/23
--- OUTSIDE RECORDS SUMMARY | 2023-10-10 09:56 | XMS_ITS | Encounter Summary ---
Author Name Unknown Organization [facility] er Address [address] [place] [address] Care Team Providers Care Regional Service Manager Name Role Phone Maylin Phipps APRN Primary Care Provider Encounter Details Date Type Department Care Team (Late st Contact Info) Description 04/03/2023 Orders Only [place] [address] [place], [place] [address] Maylin Phipps EQUIPMENT OILER [address] [place] [address] Attention deficit disorder (ADD) without hyperactivity Social [...] on file documented as of this encounter Plan of Treatment Not on file documented as of this encounter Visit Diagnoses Diagnosis Attention deficit disorder (ADD) without hyperactivity documented in this encounter Care Teams Regional Service Manager Relationship Specialty Start Date End Date Maylin Phipps APRN [address] [place] [id number] PCP - General Family Medicine 04/03/23 documented as of this encounter
--- OUTSIDE RECORDS SUMMARY | 2023-10-10 09:56 | XMS_ITS | Encounter Summary ---
Author Name Unknown Organization [facility] er Address [address] [place] [address] Care Team Providers Care Training Engineer Name Role Phone Maylin Phipps APRN Primary Care Provider Encounter Details Date Type Department Care Team (Late st Contact Info) Description 10/02/2023 Orders Only [place] [address] [place] [address] Maylin Phipps APRN [address] [place] [address] Attention deficit disorder (ADD) without hyperactivity (Primary Dx) Social History Tobacco Use Types Packs/Day Years Used Date Smoking Tobacco: Former Cigarettes 0.5 Q uit: 01/2022 Smokeless Tobacco: Never Alcohol Use Standard Drinks/Week [...] Primary documented in this encounter Care Teams Training Engineer Relationship Specialty Start Date End Date Maylin Phipps, FLASHER ADJUSTER [address] [place] [id number] PCP - General Family Medicine 04/03/23 documented as of this encounter
--- OUTSIDE RECORDS SUMMARY | 2023-10-10 09:56 | XMS_ITS | Encounter Summary ---
Author Name Unknown Organization [facility] er Address [address] [place] [address] Care Team Providers Care Cleaning Matron Name Role Phone Maylin Phipps APRN Primary Care Provider Encounter Details Date Type Department Care Team (Late st Contact Info) Description 05/03/2023 Orders Only [place] [address] [address] Latonia Greenwood MD 17[address] [facility] 20 [place] [address] Attention deficit disorder (ADD) without hyperactivity Social [...] hyperactivity documented in this encounter Care Teams Cleaning Matron Relationship Specialty Start Date End Date Maylin Phipps APRN [address] [place] [id number] PCP - General Family Medicine 04/03/23 documented as of this encounter
--- OUTSIDE RECORDS SUMMARY | 2023-10-10 09:56 | XMS_ITS | Encounter Summary ---
Author Name Unknown Organization [facility] er Address [address] [place] [address] Care Team Providers Care Cytology Technologist Name Role Phone Maylin Phipps APRN Primary Care Provider Reason for Visit * Reason Onset Date Comments Adderall script pick-up 10/04/2023 Encounter Details Date Type Department Care Team (Late st Contact Info) Description 10/04/2023 Telephone [place] [address] [place] [address] Maylin Phipps, PEDIATRIC LICENSED PRACTICAL NURSE [address] [place] [id number] Adderall script pick-up Social History Tobacco Use Types Packs/Day Years [...] on file documented as of this encounter Miscellaneous Notes * Telephone Encounter - Aruna Mac RN - 10/04/2023 4:14 PM CST Noted. 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 RY WORKER documented in this encounter Plan of Treatment Not on file documented as of this encounter Visit Diagnoses Not on filedocumented in this encounter Care Teams Cytology Technologist Relationship Specialty Start Date End Date Maylin Phipps, PEDIATRIC LICENSED PRACTICAL NURSE [address] [place] [phone] PCP - General Family Medicine 04/03/23 documented as of this encounter
--- OUTSIDE RECORDS SUMMARY | 2023-10-10 09:56 | XMS_ITS | Encounter Summary ---
Author Name Unknown Organization [facility] er Address [address] [place] [address] Care Team Providers Care Team Guide Name Role Phone Marisel Albright APRN, CNP Primary Care Provider [phone]- [phone] Encounter Details Date Type Department Care Team (Late st Contact Info) Description 03/01/2023 2:15 PM CDT Lab [place] [address] [facility] [place] [address] Annual physical exam Social History Tobacco Use Types Packs/Day Years [...] on file documented as of this encounter Procedures Procedure Name Priority Date/Time Associated Diagnosis Comments ESTIMATED GLOMERULAR FILTRATION RATE (EGFR) Routine 03/01/2023 2:13 PM CDT Annual physical exam CBC BRANCH OFFICE W/DIFF Routine 03/01/2023 2:13 PM CDT Annual physical exam TSH Routine 03/01/2023 2:13 PM CDT Annual physical exam LIPID PANEL Routine 03/01/2023 2:13 PM CDT Annual physical exam COMPREHENSIVE METABOLIC PANEL Routine 03/01/2023 2:13 PM CDT Annual physical exam documented in this encounter Results * Estimated Glomerular Filtration Rate (eGFR) (03/01/2023 2:13 PM CDT) Estimated Glomerular Filtration Rate (eGFR) >60 03/01/2023 5:09 PM CDT [facility] Comment: GFR calculated from serum creatinine value Chronic Kidney Disease less than 60 mL/min/1.73 m2 Kidney Failure less than 15 mL/min/1.73 m2 Note: effective 09/26/2022: 2020 CKD-EPI Equation used 03/01/2023 2:13 PM CDT 03/01/2023 2:13 PM CDT Maylin Phipps APRN LAB BLOOD [facility] Organization Address City/State/ZIP Co de Phone Number [facility] [address] [place] [address] * (ABNORMAL) CBC Branch Off w/Diff (03/01/2023 [...] - 98.3 fL 03/01/2023 2:25 PM CDT [facility] MCH 29.1 26.0 - 32.0 pg 03/01/2023 2:25 PM CDT [facility] MCHC 32.9 32.0 - 36.0 g/dL 03/01/2023 2:25 PM CDT [facility] RDW 12.3 11.9 - 15.5 % 03/01/2023 2:25 PM CDT [facility] Lymphocytes % 33.7 % 03/01/2023 2:25 PM CDT [facility] Mid-size Cells 5.1 % 03/01/2023 2:25 PM CDT [facility] Granulocytes/Grace trophils 61.2 % 03/01/2023 2:25 PM CDT [facility] Lymphocytes Absolute 3.2(H) 0.9 - 2.9 K/uL 03/01/2023 2:25 PM CDT [facility] MIDS Absolute 0.5 0.4 - 1.5 K/uL 03/01/2023 2:25 PM CDT [facility] Granulocytes/Grace trophils Absolute 5.7 1.7 - 7.0 K/uL 03/01/2023 2:25 PM CDT [facility] Blood (Blood, Venous) 03/01/2023 2:13 PM CDT 03/01/2023 2:13 PM CDT Maylin Phipps APRN LAB BLOOD [facility] Organization Address City/State/ZIP Co de Phone Number [facility] [address] [place] [address] * (ABNORMAL) Comprehensive metabolic panel (03/01/2023 2:13 PM CDT) Total Protein 7.2 6.3 - 8.2 g/dL 03/01/2023 5:09 PM CDT [facility] Albumin, Serum 4.4 3.5 - 5.0 g/dL 03/01/2023 5:09 PM CDT [facility] Total Bilirubin <0.7 0.1 - 1.0 mg/dL 03/01/2023 5:09 PM [facility] AST 24 8 - 43 U/L 03/01/2023 5:09 PM [facility] Alkaline Phosphatase 93 38 - 128 U/L 03/01/2023 5:09 PM [facility] ALT (SGPT) 23 0 - 34 U/L 03/01/2023 5:09 PM [facility] Sodium 139 135 - 145 mEq/L 03/01/2023 5:09 PM [facility] Potassium 4.4 3.5 - 5.1 mEq/L 03/01/2023 5:09 PM [facility] Chloride 107 98 - 107 mEq/L 03/01/2023 5:09 PM [facility] CO2 31(H) 22 - 29 mmol/L 03/01/2023 5:09 PM [facility] BUN 16 5 - 25 mg/dL 03/01/2023 5:09 PM [facility] Creatinine 0.67 0.40 - 1.20 mg/dL 03/01/2023 5:09 PM [facility] Glucose 98 70 - 100 mg/dL 03/01/2023 5:09 PM [facility] Calcium, Total,S 9.1 8.4 - 10.2 mg/dL 03/01/2023 5:09 PM [facility] Blood (Blood, Venous) 03/01/2023 2:13 PM CDT 03/01/2023 4:34 PM CDT Maylin Phipps APRN LAB BLOOD [facility] [address] [place] [address] * TSH (03/01/2023 2:13 PM CDT) TSH, Sensitive 0.87 0.46 - 4.68 mIU/L 03/01/2023 5:39 PM CDT [facility] Comment: The results from this or [...] Maylin Phipps APRN LAB BLOOD TELMAE KAYLAN [facility] [address] [place] [address] * Lipid panel (03/01/2023 2:13 PM CDT) [facility] Cholesterol 139 0 - 199 mg/dL 03/01/2023 5:09 PM T [facility] Comment: Recommended by National Cholesterol Education Program (ATP III) -------- Cholesterol Ranges -------- <200 ?Desirable 200-239 ? Borderline high >=240 ? High Triglycerides 99 0 - 149 mg/dL 03/01/2023 5:09 PM T [facility] Comment: -------- TRIG Ranges -------- <150 ?Normal 150-199 ? Borderline high 200-499 ? High >=500 ? Very high HDL 81 40 - 250 mg/dL 03/01/2023 5:09 PM T [facility] Comment: -------- HDL Ranges -------- <40 ?Low 40-59 ?Normal >=60 ? Optimal LDL Calculated 38 0 - 99 mg/dL 03/01/2023 5:09 PM CDT [facility] Comment: -------- LDL Ranges -------- <100 ? Optimal 100-129 ?Near optimal/above optimal 130-159 ?Borderline high 160-189 ?High >=190 ?Very high Fasting? Unknown 03/01/2023 2:13 PM CDT [facility] Blood (Blood, Venous) 03/01/2023 2:13 PM CDT 03/01/2023 4:34 PM CDT Maylin Phipps APRN LAB BLOOD [facility] [place] [address] [place] [address] documented in this encounter Visit Diagnoses Diagnosis Annual physical exam Routine general medical examination at a health care facility documented in this encounter Care Teams Team Guide Relationship Specialty Start Date End Date Marisel Albright APRN, CNP [address] [place] [address] PCP - General Family Medicine 04/13/21 04/02/23 documented as of this encounter
--- OUTSIDE RECORDS SUMMARY | 2023-10-10 09:56 | XMS_ITS | Encounter Summary ---
Author Name Unknown Organization [facility] er Address [address] [place] [address] Care Team Providers Care Hand Fur Cleaner Name Role Phone Maylin Phipps APRN Primary Care Provider Reason for Visit * Reason Comments Med Refill Encounter Details Date Type Department Care Team (Late st Contact Info) Description 06/05/2019 Refill [place] [address] [facility] [place] [address] Laura Hansen, TRANSPORTATION SOLUTIONS MANAGER, JUNIOR ACCOUNTANT [address] [place] [address] Anxiety Social History Tobacco Use Types Packs/Day Years Used Date Smoking Tobacco: Unknown Smokeless Tobacco: Never Alcohol Use Standard Drinks/Week Comments Yes 1 (1 standard drink = 0.6 oz pur e alcohol) AUDIT-C Answer Date Recorded Frequency of Alcohol Consumption Monthly or less 05/14/2019 Average Number of Drinks 1 or 2 019 Frequency of Binge Drinking Not on file 04/30 PHQ-2 Answer Date Recorded PHQ-2 Score 0 05/14/2019 Education Answer Date Recorded What is the highest level of school you have completed or the highest degree you have received? High school graduate 05/12/2019 Sex and Gender Information Value Date Recorded Sex Assigned at Not on file Gender Identity Not on file Sexual Orientation Not on file documented as of this encounter Miscellaneous Notes * Telephone Encounter - Juliana Cardenas LPN - 06/09/2019 11:58 AM CDT Last visit in Provider Department: 05/14/2019 Upcoming appointment with Provider: none Last Rx: 11/04/2018 # 30, 4 refills Requested Prescriptions Pending Prescriptions Disp Refills ??? ALPRAZolam (XANAX) 0.5 MG tablet [Pharmacy Med Name: ALPRAZOLAM 0.5MG TABS] 30 tablet 4 Sig: TAKE ONE TABLET BY MOUTH NEEDED FOR ANXIETY 05/14/2019 PHQ9: 0 documented in this encounter Plan of Treatment Not on file documented as of this encounter Visit Diagnoses Diagnosis Anxiety Anxiety state, unspecified documented in this encounter Care Teams Hand Fur Cleaner Relationship Specialty Start Date End Date Maylin Phipps, TRANSPORTATION SOLUTIONS MANAGER [address] [place] [id number] PCP - General Family Medicine 04/03/23 documented as of this encounter
--- OUTSIDE RECORDS SUMMARY | 2023-10-10 09:56 | XMS_ITS | Encounter Summary ---
Author Name Unknown Organization [facility] er Address [address] [place] [address] Care Team Providers Care Casserole Preparer Name Role Phone Maylin Phipps APRN Primary Care Provider Encounter Details Date Type Department Care Team (Late st Contact Info) Description 10/04/2023 Orders Only [place] [address] [place] [address] Maylin Phipps RECONCILIATION ACCOUNTANT [address] [place] [address] Attention deficit disorder (ADD) without hyperactivity Social [...] hyperactivity documented in this encounter Care Teams Casserole Preparer Relationship Specialty Start Date End Date Maylin Phipps APRN [address] [place] [phone] PCP - General Family Medicine 04/03/23 documented as of this encounter
--- OUTSIDE RECORDS SUMMARY | 2023-10-10 09:56 | XMS_ITS | Encounter Summary ---
Author Name Unknown Organization [facility] er Address [address] [place] [address] Care Team Providers Care Computer Systems Design Analyst Name Role Phone Maylin Phipps APRN Primary Care Provider Encounter Details Date Type Department Care Team (Late st Contact Info) Description 04/04/2023 Orders Only [place] [address] [place], [place] [id number] Maylin Phipps APRN [address] [place] [address] Attention deficit disorder (ADD) without hyperactivity Social [...] hyperactivity documented in this encounter Care Teams Computer Systems Design Analyst Relationship Specialty Start Date End Date Maylin Phipps APRN [address] [place] [id number] PCP - General Family Medicine 04/03/23 documented as of this encounter
== END 2023-10-05 12:01 | disposition home or self-care (01) ==
LOC: NFLDREF 10-10 09:53
PROVIDERS: PCP Nurse Practitioner Family; Referring Provider Nurse Practitioner Family; Visit Provider Registered Nurse
DX: N92.0 Excessive and frequent menstruation with regular cycle (principal)
CPT/HCPCS: 84702

== ENCOUNTER 2024-11-20 12:07 | Outpatient (CLI) | payer OTHER, SELFPAY ==
[2024-11-24 10:33] LABS: HPV Source Cervical; HPV, High Risk by TMA Not Detected
== END 2024-11-20 12:08 | disposition home or self-care (01) ==
PROVIDERS: PCP Nurse Practitioner Family; Visit Provider Obstetrics & Gynecology
DX: Z12.4 Encounter for screening for malignant neoplasm of cervix (principal); Z11.51 Encounter for screening for human papillomavirus (HPV)
CPT/HCPCS: 87624; 87625; 88141; 88142

== ENCOUNTER 2025-03-31 12:21 | Outpatient (CLI) | payer OTHER, SELFPAY | END 2025-03-31 12:22 | disposition home or self-care (01) | LOC: NFLDUCREF 12:22 | PROVIDERS: PCP Nurse Practitioner Family | DX: R10.9 Unspecified abdominal pain (principal); R35.0 Frequency of micturition | CPT/HCPCS: 87086 ==